=== PATIENT | female | born 1955 | race Caucasian/White ===

== ENCOUNTER 2016-09-30 11:17 | Emergency (ER) | payer MEDICARE ==
[2016-09-30 12:38] VITALS: BP 126/79; PULSE 84; O2SAT 99
--- NOTE | 2016-09-30 13:02 | ERPHSYRPT ---
- History of Present Illness Time Seen by Provider: 09/30/16 12:51 Source: patient Exam Limitations: no limitations Patient Subjective Stated Complaint: lt ear pain Triage Nursing Assessment: lt ear pain and fullness for 1 week. denies drainage. denies upper resp s/s. no fever. c/o positional dizziness due to left ear fullness, Physician History: This is a 61-year-old white female she arrives with complaint of left ear pain and fullness in her left ear symptoms for 3 weeks. She states this has been wet worse for the last week she denies any injury to her left ear. Past medical history includes seizures depression. Past medical history includes hysterectomy, bladder cancer, tonsillectomy. Timing/Duration: abrupt onset Severity: moderate ENT Location: ear (L) Prearrival Treatment: prescription meds (patient states she has tramadol at home but has not been taking it she [place] [facility] and will not be home until next Monday) Modifying Factors: Improves With: activity Associated Symptoms: ear pain (L), No cough, No fever, No chills, No change in hearing, No dizziness, No drooling, No ear drainage, No facial pain/swelling, No headache, No hearing loss, No jaw pain, No malaise, No motion sickness, No nasal congestion/drainage, No epistaxis, No nasal foreign body, No neck pain, No poor fluid intake, No poor solids intake, No ringing of ears, No swollen glands, No sinus infection, No tooth pain, No difficulty swallowing, No other Allergies/Adverse Reactions: codeine Allergy (Verified 09/30/16 12:38) Home Medications: Duloxetine HCl 30 mg [Cymbalta 30 MG Capsule] 30 mg PO HS 09/30/16 [ History] Gabapentin [Neurontin] 100 mg PO HS 09/30/16 [History] Lamotrigine [Lamictal] 300 mg PO BID 09/30/16 [History] Omeprazole 20 MG [Prilosec 20 mg] 20 mg PO DAILY 09/30/16 [History] Tizanidine HCl 4 mg [Zanaflex 4 MG] 4 mg PO HS 09/30/16 [History] Hx Tetanus, Diphtheria Vaccination/Date Given: Yes Hx Influenza Vaccination/Date Given: Yes Hx Pneumococcal Vaccination/Date Given: No Immunizations Up to Date: Yes - Review of Systems Constitutional: No Fever, No Chills Eyes: No Symptoms Ears, Nose, & Throat: Ear Pain, No Ear Discharge, No Hearing Changes, No Tinnitus, No Nose Pain, No Nose Congestion, No Nose Discharge, No Sinus Drainage , No Epistaxis, No Mouth Pain, No Mouth Swelling, No Loose Teeth, No Throat Pain , No Throat Swelling, No Hoarse, No Painful Swallowing, No Snoring, No Stridor Respiratory: No Cough, No Dyspnea Cardiac: No Chest Pain, No Edema, No Syncope Abdominal/Gastrointestinal: No Abdominal Pain, No Nausea, No Vomiting, No Diarrhea Genitourinary Symptoms: No Dysuria Musculoskeletal: No Back Pain, No Neck Pain Skin: No Rash Neurological: No Dizziness, No Focal Weakness, No Sensory Changes Psychological: No Symptoms Endocrine: No Symptoms All Other Systems: Reviewed and Negative - Past Medical History Pertinent Past Medical History: Yes Neurological History: Seizures Psycho-Social History: Depression - Past Surgical History Past Surgical History: Yes Female Surgical History: Hysterectomy Other Surgical History: bladder cancer. neck surgery. tonsils - Social History Smoking Status: Never smoker Exposure to second hand smoke: No Drug Use: none Patient Lives Alone: Yes - Nursing Vital Signs Nursing Vital Signs: Initial Vital Signs Temperature 98.4 F Temperature Source Oral Pulse Rate 84 Respiratory Rate 18 Blood Pressure [Right Arm] 126/79 Pain Intensity 6 - Physical Exam General Appearance: moderate distress Eye Exam: bilateral eye: normal inspection, PERRL, EOMI (this is a regular located under her) Ear Exam: right ear: canal normal, TM normal, left ear: other (patient's left canal with moderate amount of cerumen making it difficult to visualize the patient's left tympanic membrane), bilateral ear: auricle normal Nasal Exam: normal inspection Throat Exam: pharynx normal, moist mucus membranes, No tonsillar exudate Neck Exam: supple Cardiovascular/Respiratory Exam: normal breath sounds, regular rate/rhythm Abdominal Exam: non-tender, soft Neurologic Exam: alert, oriented x 3, sensation nml, No motor deficits Skin Exam: normal color, warm, dry SpO2 Interpretation: normal (99%) SpO2: 99 Oxygen Delivery: Room Air - Course Nursing assessment & vital signs reviewed: Yes - Progress Progress: improved Progress Note: 09/30/16 13:00 This is a 61-year-old white female she arrives with complaint of pain in her left ear symptoms for 3 weeks she states it has become worse over the last week. She apparently has tramadol at home but is down here [place] [facility]. She states she has not been taking her tramadol for pain. On physical examination patient has cerumen in her left ear canal making it difficult to see the tympanic membrane. The patient is tender with traction of her left auricle I do not believe that patient will tolerate irrigation of her left ear. She denies any history of perforation of her tympanic membrane. I checked the patient's inspect report she received tramadol 50 mg tablets #20 on the beginning of this month Will go ahead and treat patient for left otitis media and with amoxicillin And will place patient on a limited amount of a tramadol for her pain, I have advised patient that a pickup some Cerumenex from the drugstore. And follow-up with her family doctor. - Departure Time of Disposition: 13:02 Departure Disposition: Home Clinical Impression: left ear pain, Impacted cerumen of left ear Condition: Fair Critical Care Time: No Additional Instructions: Return home. Tramadol 50 mg #12 one orally every 4-6 hours as needed for pain. Amoxicillin 500 mg orally 3 times a day for 10 days Obtain Cerumenex from drugstore and use as directed ,. Follow-up with your family doctor. Return for acute distress or for severe symptoms. Prescriptions: Amoxicillin 500 mg PO TID #30 capsule Tramadol HCl 50 mg [Ultram 50 mg] 50 mg PO Q4-6HPRN PRN #12 tablet PRN Reason: Pain
== END 2016-09-30 13:31 | disposition home or self-care (01) ==
LOC: ED 11:17
DX: H92.02 Otalgia, left ear (principal); H61.22 Impacted cerumen, left ear
CPT/HCPCS: 99281